=== PATIENT | female | born 1955 | race Caucasian/White ===

== ENCOUNTER 2018-11-01 08:13 | Day surgery (SDC) | payer OTHER ==
[~2018-11-01 08:13] MED LIST: Lactated Ringers 1,000 ML IV SCH; Lidocaine 1%/Sod Bicarbonate in NS 8.4% 1 ML Syringe IDERM PRN; Sodium Chloride 0.9% 10 ML Syringe FLUSH PRN
--- NOTE | 2018-11-01 08:38 | PCM.PREANE ---
Preanesthetic Assessment - Procedure Proposed Procedure: diagnostic colonoscopy and egd - Anesthesia/Transfusion/Family Hx Anesthesia History: Prior Anesthesia Without Reaction Family History of Anesthesia Reaction: No Transfusion History: No Prior Transfusion(s) - Review of Systems General: No Symptoms Pulmonary: Cough (cold a few weeks ago) Cardiovascular: No Symptoms Gastrointestinal: No Symptoms Neurological: No Symptoms Other: Reports: Diabetes - Physical Assessment NPO Status Date: 10/31/18 NPO Status Time: 23:55 Pulse: 88 O2 Sat by Pulse Oximetry: 93 Respiratory Rate: 16 Blood Pressure: 127/85 Temperature: 97.8 F Height: 5 ft 10 in Weight: 116.483 kg ASA Class: 2 Mental Status: Alert & Oriented x3 Airway Class: Mallampati = 1 Dentition: Reports: Dentures (top and bottom) Thyro-Mental Finger Breadths: 3 Mouth Opening Finger Breadths: 3 Lungs: Clear to Auscultation, Normal Respiratory Effort, Decreased Breath Sounds Cardiovascular: Regular Rate, Regular Rhythm, Murmurs - Allergies Allergies/Adverse Reactions: Allergies Allergy/AdvReac Type Severity Reaction Status Date / Time codeine Allergy Nausea and Verified 10/31/18 14:48 Vomiting Dairy Products Allergy Itching Verified 10/31/18 14:48 nitrofurantoin Allergy Nausea and Verified 10/31/18 14:48 [From Macrobid] Vomiting sitagliptin [From Januvia] Allergy Nausea and Verified 10/31/18 14:48 Vomiting Yeast Allergy Itching Verified 10/31/18 14:48 - Blood Blood Available: No - Acknowledgements Anesthesia Type Planned: MAC Pt an Appropriate Candidate for the Planned Anesthesia: Yes Alternatives and Risks of Anesthesia Discussed w Pt/Guardian: Yes Pt/Guardian Understands and Agrees with Anesthesia Plan: Yes PreAnesthesia Questionnaire HEENT History: Reports: Impaired Vision, Other (See Below) Other HEENT History: wears glasses, has dentures Cardiovascular History: Reports: Heart Murmur, High Cholesterol, Hypertension Respiratory History: Reports: Sleep Apnea (cpap) Gastrointestinal History: Reports: GERD Genitourinary History: Reports: None MEDICAL SALES REPRESENTATIVE History: Reports: None Musculoskeletal History: Reports: None Neurological History: Reports: None Psychiatric History: Reports: None Endocrine/Metabolic History: Reports: Diabetes, Type II, Obesity/BMI 30+ Hematologic History: Reports: None Immunologic History: Reports: None Oncologic (Cancer) History: Reports: None Dermatologic History: Reports: None - Past Surgical History Head Surgeries/Procedures: Reports: None Cardiovascular Surgical History: Reports: None Respiratory Surgical History: Reports: None GI Surgical History: Reports: Hernia, Inguinal Female Surgical History: Reports: Hysterectomy Male Surgical History: Reports: None Endocrine Surgical History: Reports: None Neurological Surgical History: Reports: None Musculoskeletal Surgical History: Reports: None Oncologic Surgical History: Reports: None Dermatological Surgical History: Reports: None - SUBSTANCE USE Smoking Status *Q: Never Smoker Tobacco Use Within Last Twelve Months: No Second Hand Smoke Exposure: No Days Per Week of Alcohol Use: 0 Recreational Drug Use History: No - HOME MEDS Home Medications: Home Meds Aspirin [Adult Aspirin] 81 mg PO DAILY 10/31/18 [History] Cefuroxime [Ceftin] 250 mg PO BID 10/31/18 [History] Cholecalciferol (Vitamin D3) [Vitamin D3] 400 units PO DAILY 10/31/18 [History] Cinnamon Bark [Cinnamon] 1,000 mg PO DAILY 10/31/18 [History] Cranberry 500 mg PO DAILY 10/31/18 [History] Cyanocobalamin (Vitamin B-12) [Vitamin B-12] 1,000 mcg PO DAILY 10/31/18 [ History] Docusate Sodium 1 tab PO DAILY 10/31/18 [History] Iron Ag,Ps/C/Fa6/B12/Zn/SA/Sto [Niferex Tablet] 1 tab PO QAM 10/31/18 [History] Losartan/Hydrochlorothiazide [Hyzaar 100-25 Tablet] 1 tab PO QAM 10/31/18 [ History] Lutein/Minerals/Vit A,C & E [Ocuvite] 1 tab PO DAILY 10/31/18 [History] Magnesium Oxide 250 mg PO DAILY 10/31/18 [History] Multivitamin [Daily Multiple Vitamin] 1 tab PO DAILY 10/31/18 [History] Natural Accelerator 1 tab PO DAILY 10/31/18 [History] Omeprazole Magnesium [Prilosec Otc] 20 mg PO DAILY PRN 10/31/18 [History] Ozempic 0.5 mg SQ Q7D 10/31/18 [History] PARoxetine HCl [Paxil] 20 mg PO DAILY 10/31/18 [History] Potassium Gluconate [Potassium] 99 mg PO DAILY 10/31/18 [History] Replenex 3 tab PO DAILY 10/31/18 [History] Simvastatin [Zocor] 5 mg PO DAILY 10/31/18 [History] Turmeric 400 mg PO DAILY 10/31/18 [History] Unforgettable 1 tab PO DAILY 10/31/18 [History] Vitamin D3/Vitamin K2 (Mk4) [K2 Plus D3 Tablet] 1 tab PO DAILY 10/31/18 [History ] amLODIPine Besylate [Norvasc] 5 mg PO DAILY 10/31/18 [History] glipiZIDE [Glucotrol] 10 mg PO DAILY 10/31/18 [History] metFORMIN HCl [Metformin HCl] 1,000 mg PO BID 10/31/18 [History] - CURRENT (IN HOUSE) MEDS Current Meds: Current Medications Lactated Ringer's (Ringers, Lactated) 1,000 mls @ 125 mls/hr IV ASDIRECTED MARICEL Stop: 11/01/18 23:00 Lidocaine/Sodium Bicarbonate (Buffered Lidocaine 1% In Ns 8.4%) 0.25 ml IDERM ONETIME PRN PRN Reason: Prior to IV Start Stop: 11/01/18 18:00 Sodium Chloride (Saline Flush) 10 ml FLUSH ASDIRECTED PRN PRN Reason: Keep Vein Open Stop: 11/01/18 18:00
[2018-11-01] MEDS ORDERED: Lidocaine 1% 4 ML ONE (08:44)
[2018-11-01] MEDS ORDERED: fentaNYL 100 MCG/2 ML SDV ONE (08:45)
[2018-11-01] MEDS ORDERED: Propofol 200 MG/20 ML SDV ONE ×2 (08:45→11:12)
[2018-11-01] MEDS ORDERED: Midazolam 1 MG/ML 2 ML SDV ONE (08:45)
[2018-11-01] MEDS ORDERED: Insulin Regular, Human 100 Units/ML 3 ML Vial SUBCUT SCH (09:54)
--- NOTE | 2018-11-01 11:44 | PCM48HPAN ---
Post Anesthesia Note - EVALUATION WITHIN 48HRS OF ANESTHETIC Vital Signs in Normal Range: Yes Patient Participated in Evaluation: Yes Respiratory Function Stable: Yes Airway Patent: Yes Cardiovascular Function Stable: Yes Hydration Status Stable: Yes Pain Control Satisfactory: Yes Nausea and Vomiting Control Satisfactory: Yes Mental Status Recovered: Yes Pulse Rate: 78 SaO2: 91 Resp Rate: 20 Temperature: 98 F Blood Pressure: 107/69
--- NOTE | 2018-11-01 11:55 | PCM.OPNOTE ---
- General Post-Op/Procedure Note Date of Surgery/Procedure: 11/01/18 Operative Procedure(s): EGD and colonoscopy Findings: 1. Diffuse gastritis 2. Polypoid tissue at the pylorus 3. Irregular GE junction suspicious for short segment Mcclellan's esophagus 4. Colon polyps Pre Op Diagnosis: heartburn, iron deficiency anemia Post-Op Diagnosis: same Anesthesia Technique: KARLA Primary Surgeon: Nkechi Cherry Anesthesia Provider: Fer Garza Pathology: 1. Antrum biopsy 2. Pyloric polyp biopsy 3. GE junction in 4 quadrants 4. Ascending colon polyp 5. Transverse colon polyps 3 6. Descending colon polyp 2 7. Sigmoid colon polyp Fluid Replacement, Intraop: 900 Output, Urine Amount: 0 EBL in mLs: 0 Complications: none apparent Condition: Good
--- NOTE | 2018-11-01 16:09 | PCM.PRNOTE ---
- Free Text/Narrative Note: Operative Report Date of Surgery/Procedure: November 01, 2018 Operative Procedure: Diagnostic EGD and Colonoscopy to cecum with biopsy Pre Op Diagnosis: Heartburn and iron deficiency anemia Post-Op Diagnosis: same Surgeon: Nkechi Cherry Anesthesia Technique: MAC Anesthesia Provider: Taina Garza CRNA IV Fluid Replacement, Intraop: 800cc Output, Urine Amount: 0cc EBL : 0cc Findings: 1. Diffuse gastritis 2. Polypoid tissue at the pylorus 3. Irregular GE junction suspicious for short segment Mcclellan's esophagus 4. Colon polyps Specimens: 1. Antrum biopsy 2. Pyloric polyp biopsy 3. GE junction in 4 quadrants 4. Ascending colon polyp 5. Transverse colon polyps 3 6. Descending colon polyp 2 7. Sigmoid colon polyp Indication: The patient is a 63year-old 80 who presented to the outpatient clinic needing endoscopy screening for iron deficiency anemia. The patient has a history of , heartburn and history of dysphasia We discussed the procedure of a screening colonoscopy including the polypectomy and biopsy. Risks of bleeding and perforation were discussed, the patient understood and wished to proceed. Written and consent was obtained Description of the procedure: The patient was brought to the endoscopy suite and placed in the left lateral decubitus position. Appropriate monitors were applied. The patient was given MAC anesthesia. A bite block was placed. We proceeded to gently introduce a scope into the mouth through the esophagus into the stomach. Diffuse gastritis was noted. There was bilious fluid present pooling in the stomach. We proceeded to inspect the pyloric area. There was a pyloric polyp noted. This was biopsied using cold biopsy forceps. Biopsies were taken in the antrum for H. pylori using cold biopsy forceps. The proceeded into the duodenum to the second portion, this appeared normal. There were no abnormalities in any of the tissue. We retroflexed the scope to inspect the cardia and fundus and again noted diffuse gastritis. The scope was then withdrawn toward the esophagus. There was irregularity of the GE junction with some short tongues of salmon -colored mucosa extending into the esophagus. This is suspicious for short segment Mcclellan's esophagus. Biopsies were taken in 4 quadrants using cold biopsy forceps and sent for pathology. The scope was then fully withdrawn taking paying careful attention to the mucosa. There were no other abnormalities noted. The scope was removed from the mouth. An anorectal examination was performed, revealing no abnormalities. The scope was placed into the rectum and advanced to cecum with no difficulty, and requiring no additional procedures. The patients cecum was entered, and the ileocecal valve and appendiceal orifice were identified and normal. At this point, the scope was withdrawn, paying careful attention to the mucosa. The patient had adequate bowel prep, allowing for visualization of wound 70-75 % of the mucosa. With washing we were able to see 80-85% . Multiple polyps were seen. There was a descending colon polyp which was biopsied using cold biopsy forceps. This was approximately 2 mm and semi-sessile. There were 3 polyps in the transverse colon, measuring 3-4 mm and semi-pedunculated. These were each removed using cold biopsy forceps. There were 2. Descending colon polyps measuring 3-4 mm and semi-sessile. These were removed using cold biopsy forceps. An additional 2 mm pedunculated polyp was noted in the sigmoid. This was removed using cold biopsy forceps. In the rectum, the scope was retroflexed and no abnormalities were noted, except for some hemorrhoidal tissue. The scope was placed back in the lumen and the excess air was aspirated. The patient tolerated the procedure well. Complications: none apparent Condition: Good, transported to PACU in stable condition Nkechi Cherry MD General Surgery
== END 2018-11-01 12:30 | disposition home or self-care (01) ==
LOC: JD.SDS 08:13
PROVIDERS: ATTEND Surgery
DX: D12.2 Benign neoplasm of ascending colon (principal); D12.3 Benign neoplasm of transverse colon; D12.4 Benign neoplasm of descending colon; K63.5 Polyp of colon; K51.40 Inflammatory polyps of colon without complications; K29.50 Unspecified chronic gastritis without bleeding; D50.9 Iron deficiency anemia, unspecified; I51.89 Other ill-defined heart diseases; K22.8 Other specified diseases of esophagus; K64.9 Unspecified hemorrhoids; K21.9 Gastro-esophageal reflux disease without esophagitis; I10 Essential (primary) hypertension; E11.9 Type 2 diabetes mellitus without complications; E78.00 Pure hypercholesterolemia, unspecified; F32.9 Major depressive disorder, single episode, unspecified; G47.33 Obstructive sleep apnea (adult) (pediatric); E66.9 Obesity, unspecified; Z68.37 Body mass index [BMI] 37.0-37.9, adult; Z88.5 Allergy status to narcotic agent; Z88.1 Allergy status to other antibiotic agents; Z91.011 Allergy to milk products; Z99.89 Dependence on other enabling machines and devices; Z79.4 Long term (current) use of insulin; Z79.82 Long term (current) use of aspirin; Z79.899 Other long term (current) drug therapy
CPT/HCPCS: 43239; 45380; 82962; 93005; J1815; J2001; J2250; J2704; J3010; J7120; 00813

== ENCOUNTER 2023-02-14 21:53 | Emergency (ER) | payer MEDICARE, BC | END 2023-02-14 23:58 | disposition home or self-care (01) | LOC: JD.ED 21:53 | DX: S02.2XXA Fracture of nasal bones, initial encounter for closed fracture (principal); S02.32XA Fracture of orbital floor, left side, initial encounter for closed fracture; E78.00 Pure hypercholesterolemia, unspecified; I10 Essential (primary) hypertension; E11.9 Type 2 diabetes mellitus without complications; E66.9 Obesity, unspecified; Z68.30 Body mass index [BMI] 30.0-30.9, adult; Z79.4 Long term (current) use of insulin; Z79.899 Other long term (current) drug therapy; W01.0XXA Fall on same level from slipping, tripping and stumbling without subsequent striking against object, initial encounter | CPT/HCPCS: 70486; 70486-26; 99283; 99284 ==